=== PATIENT | female | born 1940 | race Caucasian/White ===

== ENCOUNTER → 2020-12-21 19:10 | Outpatient (ROUT) | payer MEDICARE, SELFPAY ==
[2020-12-21 20:27] LABS: Aspartate Aminotransferase 25 IU/L (14-36); Blood Urea Nitrogen 17 mg/dL (7-17); Calcium 9.7 mg/dL (8.4-10.2); Carbon Dioxide 29 mmol/L (22-32); Chloride 106 mmol/L (98-107); Cholesterol 174 mg/dL (140-199); Estimated Glomerular Filt Rate > 60.0 mL/min (>60); Glucose 103 mg/dL (80-110); HDL Cholesterol 54 mg/dL (40-60); HEMOLYSIS < 15 (0-50); LDL Cholesterol Calculated 103 mg/dL (<100); Potassium 4.1 mmol/L (3.4-5.1); Sodium 139 mmol/L (137-145); Triglycerides 86 mg/dL (35-150)
[2020-12-21 20:37] LABS: Add Manual Diff / Slide Review NO; Basophils Absolute Auto 0 /uL (0-100); Basophils Percent Auto 0.6 % (0-2); Eosinophils Absolute Auto 100 /uL (0-450); Eosinophils Percent Auto 0.8 % (2-4); Hematocrit 38.8 % (36-46); Lymphocytes Absolute Auto 1600 /uL (1100-4500); Mean Corpuscular HGB Conc 33.4 % (30-36); Mean Corpuscular Hemoglobin 28.5 PG (26-34); Mean Corpuscular Volume 85.4 fL (80-100); Monocytes Absolute Auto 400 /uL (0-900); Monocytes Percent Auto 6.4 % (3-14); Neutrophils Absolute Auto 4800 /uL (1500-7000); Neutrophils Percent Auto 69.2 % (50-75); Platelet Count 236 X10^3/uL (150-400); Red Blood Cell Count 4.54 X10^6/uL (4.0-5.2); Red Cell Distribution Width 13.7 % (11.6-14.8); White Blood Cell Count 6.9 X10^3/uL (4.5-11.0)
[2020-12-21 21:37] LABS: Free T4, Direct Thyroxine 0.91 ng/dL (0.78-2.19)
== END ==
PROVIDERS: Visit Provider Internal Medicine
DX: I10 Essential (primary) hypertension (principal); E78.2 Mixed hyperlipidemia
CPT/HCPCS: 80048; 80061; 84439; 84443; 84450; 85025

== ENCOUNTER → 2021-02-18 19:08 | Outpatient (ROUT) | payer MEDICARE, SELFPAY ==
[2021-02-18 20:02] LABS: TSH w/ Reflex to FT4 5.73 uIU/mL (0.47-4.68)
[2021-02-18 20:43] LABS: Free T4, Direct Thyroxine 0.88 ng/dL (0.78-2.19)
== END ==
PROVIDERS: Visit Provider Internal Medicine
DX: E03.9 Hypothyroidism, unspecified (principal)
CPT/HCPCS: 84439; 84443

== ENCOUNTER → 2022-06-01 11:49 | Outpatient (CLI) | payer MEDICARE, SELFPAY | PROVIDERS: Visit Provider Physician Assistant | DX: R30.0 Dysuria (principal) | CPT/HCPCS: 87077; 87086; 87186 ==

== ENCOUNTER → 2022-10-09 12:39 | Outpatient (CLI) | payer MEDICARE, SELFPAY ==
[2022-10-09 14:04] LABS: Hematocrit 38.7 % (36-46); Hemoglobin 12.9 g/dL (12.0-16.0); Mean Corpuscular HGB Conc 33.3 % (30-36); Mean Corpuscular Hemoglobin 28.3 PG (26-34); Platelet Count 242 X10^3/uL (150-400); Red Blood Cell Count 4.55 X10^6/uL (4.0-5.2); White Blood Cell Count 6.5 X10^3/uL (4.5-11.0)
[2022-10-09 14:19] LABS: Alanine Aminotransferase 20 IU/L (<35); Albumin 4.3 g/dL (3.5-5.0); Albumin Globulin Ratio 1.3 (1.0-2.8); Alkaline Phosphatase 80 U/L (38-126); Aspartate Aminotransferase 30 IU/L (14-36); BUN Creatinine Ratio 20.5 (6-22); Bilirubin Total 0.3 mg/dL (0.2-1.3); Blood Urea Nitrogen 16 mg/dL (7-17); Calcium 9.3 mg/dL (8.4-10.2); Carbon Dioxide 29 mmol/L (22-32); Chloride 102 mmol/L (98-107); Cholesterol 180 mg/dL (140-199); Estimated Glomerular Filt Rate > 60 mL/min (>60); Globulin 3.4 g/dL (1.7-4.1); Glucose 93 mg/dL (80-110); HDL Cholesterol 55 mg/dL (40-60); HEMOLYSIS < 15 (0-50); LDL Cholesterol Calculated 107 mg/dL (<100); Potassium 3.7 mmol/L (3.4-5.1); Sodium 140 mmol/L (137-145); Total Protein 7.7 g/dL (6.3-8.2); Triglycerides 91 mg/dL (35-150)
[2022-10-09 15:05] LABS: TSH w/ Reflex to FT4 4.41 uIU/mL (0.47-4.68)
== END ==
PROVIDERS: PCP Internal Medicine; Referring Provider Internal Medicine; Visit Provider Internal Medicine
DX: E03.8 Other specified hypothyroidism (principal); E55.9 Vitamin D deficiency, unspecified; E78.2 Mixed hyperlipidemia; I10 Essential (primary) hypertension; I87.2 Venous insufficiency (chronic) (peripheral)
CPT/HCPCS: 36415; 80053; 80061; 82306; 84443; 85027

== ENCOUNTER → 2024-02-14 15:07 | Outpatient (CLI) | payer MEDICARE, SELFPAY ==
[2024-02-14 16:02] LABS: Aspartate Aminotransferase 28 IU/L (14-36); BUN Creatinine Ratio 37.7 (6-22); Blood Urea Nitrogen 29 mg/dL (7-17); Calcium 9.8 mg/dL (8.4-10.2); Carbon Dioxide 26 mmol/L (22-32); Chloride 106 mmol/L (98-107); Cholesterol 177 mg/dL (140-199); Estimated Glomerular Filt Rate > 60 mL/min (>60); Glucose 104 mg/dL (80-110); HDL Cholesterol 45 mg/dL (40-60); HEMOLYSIS 19 (0-50); LDL Cholesterol Calculated 105 mg/dL (<100); Sodium 139 mmol/L (137-145); Triglycerides 137 mg/dL (35-150)
== END ==
PROVIDERS: PCP Internal Medicine; Referring Provider Internal Medicine; Visit Provider Internal Medicine
DX: E78.2 Mixed hyperlipidemia (principal); I10 Essential (primary) hypertension; E03.8 Other specified hypothyroidism
CPT/HCPCS: 36415; 80048; 80061; 84443; 84450

== ENCOUNTER → 2025-05-19 13:52 | Outpatient (CLI) | payer MEDICARE, SELFPAY ==
[2025-05-19 15:15] LABS: Aspartate Aminotransferase 37 IU/L (14-36); BUN Creatinine Ratio 27.3 (6-22); Blood Urea Nitrogen 21 mg/dL (7-17); Calcium 9.6 mg/dL (8.4-10.2); Carbon Dioxide 26 mmol/L (22-32); Chloride 102 mmol/L (98-107); Cholesterol 186 mg/dL (140-199); Estimated Glomerular Filt Rate > 60 mL/min (>60); Glucose 94 mg/dL (70-99); HDL Cholesterol 51 mg/dL (40-60); HEMOLYSIS 17 (0-50); LDL Cholesterol Calculated 107 mg/dL (<100); Potassium 3.8 mmol/L (3.4-5.1); Sodium 137 mmol/L (137-145); Triglycerides 141 mg/dL (35-150)
[2025-05-19 15:47] LABS: TSH w/ Reflex to FT4 4.08 uIU/mL (0.47-4.68)
== END ==
PROVIDERS: PCP Internal Medicine; Referring Provider Internal Medicine; Visit Provider Internal Medicine
DX: I10 Essential (primary) hypertension (principal); E78.2 Mixed hyperlipidemia; E03.8 Other specified hypothyroidism
CPT/HCPCS: 36415; 80048; 80061; 84443; 84450

== ENCOUNTER → 2025-05-22 11:48 | Outpatient (CLI) | payer MEDICARE, SELFPAY ==
[2025-05-25 12:13] LABS: Fecal Immunochemical Test Negative (Negative)
== END ==
PROVIDERS: PCP Internal Medicine; Referring Provider Internal Medicine; Visit Provider Internal Medicine
DX: Z12.11 Encounter for screening for malignant neoplasm of colon (principal)
CPT/HCPCS: 82274